=== PATIENT | female | born 1995 | race Caucasian/White ===

== ENCOUNTER 2017-10-31 19:58 | Emergency (ER) | payer OTHER ==
[~2017-10-31] VITALS: Ht 167.6 cm; Wt 62.2 kg
[2017-10-31 20:02] VITALS: Ht 167.6 cm; Wt 62.2 kg
[2017-10-31] MEDS ORDERED: SODIUM CHLORIDE 0.9% 1000ML 1,000 ML IV STA (20:56)
--- NOTE | 2017-10-31 21:20 | EMERGENCY ROOM VISIT NOTE ---
History Report prepared by Layo: Jia Regalado Under the Supervision of: Dr. Giovany Davey M.D. First contact with patient: 20:41 Chief Complaint: ABDOMINAL PAIN Stated Complaint: SEVERE STOMACH PAIN Nursing Triage Summary: Stomach pain all day, concerned that it was due to food eaten earlier in the day. History of Present Illness The patient is a 22 year old female who presents to the Emergency Room with complaints of sharp constant abdominal pain beginning this afternoon. The patient states she ate a bagel this morning and then had [employer] for lunch. She states her pain began after she ate the [employer]. She reports some nausea. She denies any chance of . She denies any gross blood in her urine. Her last menstrual period was three weeks ago. She denies any fever, blood in her stool, black stools, or vomiting. The patient is on control. She denies any recent trauma. Source of History: patient Onset: this afternoon Position: abdomen Quality: sharp Timing: constant Associated Symptoms: + abdominal pain, No fevers, No vomiting, No urinary symptoms Review of Systems See HPI for pertinent positives and negatives. A total of ten systems were reviewed and were otherwise negative. Past Medical & Surgical Medical Problems: (1) No Known Active Medical Problems Family History Patient reports no known family medical history. Social History Smoking Status: Never Smoker Housing Status: lives with roommate Occupation Status: [employer] student Current/Historical Medications Scheduled Ondasetron Odt (Zofran Odt), 4 MG SL Q8 Allergies Coded Allergies: Amoxicillin (Verified Allergy, Intermediate, hives, 10/31/17) Azithromycin (Verified Allergy, Intermediate, hives, 10/31/17) Clavulanic Acid (Verified Allergy, Intermediate, hives, 10/31/17) Physical Exam Vital Signs Date Time Temp Pulse Resp B/P (MAP) Pulse Ox O2 Delivery O2 Flow Rate FiO2 10/31/17 23:41 37.3 88 18 115/55 100 Room Air 10/31/17 22:25 90 18 116/65 100 Room Air 10/31/17 20:02 36.3 92 18 138/87 100 Room Air Physical Exam Physical Exam GENERAL: She is oriented to person, place, and time. She appears well- developed and well-nourished. She does not appear distressed. ____ HENT: Exam performed. Head: Normocephalic and atraumatic. Right Ear: External ear normal. No mastoid tenderness. Left Ear: External ear normal. No mastoid tenderness. Mouth/Throat: The oropharynx is clear and moist. No trismus in the jaw. No dental abscesses or uvula swelling. No oropharyngeal exudate or tonsillar abscesses. ____ EYES: Conjunctivae and EOM are normal. Pupils are equal, round, and reactive to light. Right eye exhibits no discharge. Left eye exhibits no discharge. No scleral icterus. ____ NECK: Normal range of motion. Neck supple. No JVD present. No spinous process tenderness present. No carotid bruit present. No rigidity. No tracheal deviation and normal range of motion present. No Brudzinski's sign and no Kernig 's sign noted. ____ CV: Normal rate, regular rhythm, normal heart sounds and intact distal pulses. There is no peripheral edema. Palpable radial pulses bue. ____ PULM/CHEST: Effort normal and breath sounds normal. No respiratory distress. No stridor. She has no wheezes. She has no rales. Chest Wall: She exhibits no tenderness. ____ ABD: Pain with palpation of LUQ, LLQ, RLQ,. The abdomen is soft. Bowel sounds are normal. She has no distension. No mass is present. There is no tenderness. There is no rebound, no guarding, no Goodman's sign and no tenderness at McBurney 's point. Rovsig negative MUSC/SKEL: Normal range of motion. There is no peripheral edema, tenderness or deformity. LYMPH: No cervical adenopathy. ____ NEURO: She is alert and oriented to person, place, and time. She has normal strength. No cranial nerve deficit or sensory deficit. Coordination and gait normal. GCS eye subscore is 4. GCS verbal subscore is 5. GCS motor subscore is 6. cerbellar tests wnl. ____ SKIN: Skin is warm and dry. She is not diaphoretic. ____ PSYCH: She has a normal mood and affect. Her behavior is normal. Judgment and thought content normal. ____ Medical Decision & Procedures Laboratory Results 10/31/17 21:20 Red Blood Count 4.80, Mean Corpuscular Volume 92.5, Mean Corpuscular Hemoglobin 32.3, Mean Corpuscular Hemoglobin Concent 34.9, Mean Platelet Volume 10.1, Neutrophils (%) (Auto) 83.0, Lymphocytes (%) (Auto) 11.3, Monocytes (%) (Auto) 5.2, Eosinophils (%) (Auto) 0.2, Basophils (%) (Auto) 0.1, Neutrophils # (Auto) 11.57, Lymphocytes # (Auto) 1.58, Monocytes # (Auto) 0.72, Eosinophils # (Auto) 0.03, Basophils # (Auto) 0.02 10/31/17 21:20 Test 10/31/17 21:20 10/31/17 21:23 White Blood Count 13.95 K/uL (4.8-10.8) Red Blood Count 4.80 M/uL (4.2-5.4) Hemoglobin 15.5 g/dL (12.0-16.0) Hematocrit 44.4 % (37-47) Mean Corpuscular Volume 92.5 fL (80-100) Mean Corpuscular Hemoglobin 32.3 pg (25-34) Mean Corpuscular Hemoglobin Concent 34.9 g/dl (32-36) Platelet Count 276 K/uL (130-400) Mean Platelet Volume 10.1 fL (7.4-10.4) Neutrophils (%) (Auto) 83.0 % Lymphocytes (%) (Auto) 11.3 % Monocytes (%) (Auto) 5.2 % Eosinophils (%) (Auto) 0.2 % Basophils (%) (Auto) 0.1 % Neutrophils # (Auto) 11.57 K/uL (1.4-6.5) Lymphocytes # (Auto) 1.58 K/uL (1.2-3.4) Monocytes # (Auto) 0.72 K/uL (0.11-0.59) Eosinophils # (Auto) 0.03 K/uL (0-0.5) Basophils # (Auto) 0.02 K/uL (0-0.2) RDW Standard Deviation 45.3 fL (36.4-46.3) RDW Coefficient of Variation 13.3 % (11.5-14.5) Immature Granulocyte % (Auto) 0.2 % Immature Granulocyte # (Auto) 0.03 K/uL (0.00-0.02) Anion Gap 8.0 mmol/L (3-11) Est Creatinine Clear Calc Drug Dose 102.8 ml/min Estimated GFR () 120.3 Estimated GFR (Non- 103.8 BUN/Creatinine Ratio 22.4 (10-20) Calcium Level 9.0 mg/dl (8.5-10.1) Total Bilirubin 0.8 mg/dl (0.2-1) Aspartate Amino Transf (AST/SGOT) 59 U/L (15-37) Alanine Aminotransferase (ALT/SGPT) 36 U/L (12-78) Alkaline Phosphatase 72 U/L (45-117) Total Protein 7.6 gm/dl (6.4-8.2) Albumin 3.9 gm/dl (3.4-5.0) Globulin 3.7 gm/dl (2.5-4.0) Albumin/Globulin Ratio 1.0 (0.9-2) Lipase 121 U/L (73-393) Urine Color YELLOW Urine Appearance CLEAR (CLEAR) Urine pH 5.0 (4.5-7.5) Urine Specific [place] 1.024 (1.000-1.030) Urine Protein NEG (NEG) Urine Glucose (UA) NEG (NEG) Urine Ketones 1+ (NEG) Urine Occult Blood 1+ (NEG) Urine Nitrite NEG (NEG) Urine Bilirubin NEG (NEG) Urine Urobilinogen NEG (NEG) Urine Leukocyte Esterase NEG (NEG) Urine WBC (Auto) 1-5 /hpf (0-5) Urine RBC (Auto) 0-4 /hpf (0-4) Urine Hyaline Casts (Auto) 1-5 /lpf (0-5) Urine Epithelial Cells (Auto) >30 /lpf (0-5) Urine Bacteria (Auto) NEG (NEG) Urine Test NEG (NEG) Laboratory results reviewed by me Medications Administered Medications (Trade) Dose Ordered Sig/Varinder Route Start Time Stop Time Status Last Admin Dose Admin Sodium Chloride 1,000 ml @ 999 mls/hr Q1H1M STAT IV 10/31/17 20:56 10/31/17 21:56 DC 10/31/17 21:18 999 MLS/HR Morphine Sulfate (MoRPHine SULFATE INJ) 4 mg NOW STAT IV 1/26/18 22:11 10/31/17 22:14 DC 10/31/17 22:19 4 MG Ondansetron HCl (Zofran Inj) 4 mg NOW STAT IV 10/31/17 22:11 10/31/17 22:14 DC 10/31/17 22:18 4 MG ED Course 2050: The patient was evaluated in room B5. A complete history and physical exam was performed. 2055: Ordered Sodium Chloride 1000 ml @ 999 mls/hr IV. 2200: The patient is still appearing uncomfortable. She states she does not feel any better. On repeat abdominal exam, she now shows pain on RLQ with rebound. crying when palpating the RLQ. CT abdomen, analgesia and antiemetic ordered. 2210: Ordered Zofran Inj 4 mg IV. Morphine Sulfate 4 mg IV. 0006: Vital signs stable. CT of the abdomen showed no appendicitis. Ultrasound reading by technologist showed good blood flow to both ovaries. Patient will be discharged in stable condition with follow-up PCP. DISCHARGE - Plan of care discussed with patient and questions answered. The patient was given both verbal and printed discharge instructions. The patient verbalized understanding and ability to comply. The patient is to seek outpatient follow up as noted in the discharge instructions. The patient verbalized understanding and ability to comply. The patient is discharged in stable condition. The patient was instructed to return for worsening symptoms. Medical Decision 0006: Vital signs stable. CT of the abdomen showed no appendicitis. Ultrasound reading by technologist showed good blood flow to both ovaries. Patient will be discharged in stable condition with follow-up PCP. DISCHARGE - Plan of care discussed with patient and questions answered. The patient was given both verbal and printed discharge instructions. The patient verbalized understanding and ability to comply. The patient is to seek outpatient follow up as noted in the discharge instructions. The patient verbalized understanding and ability to comply. The patient is discharged in stable condition. The patient was instructed to return for worsening symptoms. Medication Reconcilliation Current Medication List: was personally reviewed by me Impression Primary Impression: Abdominal pain Additional Impression: Nausea and vomiting Scribe Attestation The scribe's documentation has been prepared under my direction and personally reviewed by me in its entirety. I confirm that the note above accurately reflects all work, treatment, procedures, and medical decision making performed by me. The chart was completed utilizing [employer] voice recognition software. Grammatical errors, random word insertions, pronoun errors, and incomplete sentences are an occasional consequence of this system due to software limitations, ambient noise, and hardware issues. Any formal questions or concerns about the content, text, or information contained within the body of this dictation should be directly addressed to the physician for clarification. Departure Information Prescriptions Ondasetron Odt (ZOFRAN ODT) 4 Mg Tab 4 MG SL Q8 for Nausea, #30 TAB Prov: Giovany Davey M.D. 11/01/17 Referrals No Doctor, Assigned (PCP) Patient Instructions My [facility] Problem Qualifiers Primary Impression: Abdominal pain Abdominal location: right lower quadrant Qualified Codes: R10.31 - Right lower quadrant pain Additional Impression: Nausea and vomiting Vomiting type: unspecified Vomiting Intractability: unspecified Qualified Codes: R11.2 - Nausea with vomiting, unspecified
[2017-10-31 21:49] LABS: BASO % 0.1 %; BASO ABS # 0.02 K/uL (0-0.2); EOS % 0.2 %; EOS ABS # 0.03 K/uL (0-0.5); HEMATOCRIT 44.4 % (37-47); HEMOGLOBIN 15.5 g/dL (12.0-16.0); IG# 0.03 K/uL (0.00-0.02); LYMPH % 11.3 %; LYMPH ABS # 1.58 K/uL (1.2-3.4); MEAN CELL VOLUME 92.5 fL (80-100); MEAN CORPUSCULAR HEMOGLOBIN 32.3 pg (25-34); MEAN CORPUSCULAR HGB CONC 34.9 g/dl (32-36); MEAN PLATELET VOLUME 10.1 fL (7.4-10.4); MONO % 5.2 %; MONO ABS # 0.72 K/uL (0.11-0.59); NEUT ABS # 11.57 K/uL (1.4-6.5); PLATELET COUNT 276 K/uL (130-400); RED CELL DISTRIBUTION WIDTH CV 13.3 % (11.5-14.5); RED CELL DISTRIBUTION WIDTH SD 45.3 fL (36.4-46.3); WHITE BLOOD COUNT 13.95 K/uL (4.8-10.8)
[2017-10-31] MEDS ORDERED: MoRPHine SULFATE 4 MG/ML 1 ML CARP\\VIAL IV STA (22:11)
[2017-10-31] MEDS ORDERED: ONDANSETRON INJ 2 MG/ML 2 ML VIAL IV STA (22:11)
[2017-10-31 22:14] LABS: ALBUMIN 3.9 gm/dl (3.4-5.0); CREATININE 0.81 mg/dl (0.60-1.20); POTASSIUM 3.5 mmol/L (3.5-5.1)
[2017-10-31 22:17] LABS: TOTAL PROTEIN 7.6 gm/dl (6.4-8.2)
[2017-10-31] MEDS ORDERED: OPTIRAY 320 IV PRN (22:45)
--- NOTE | 2017-10-31 23:02 | DIAGNOSTIC IMAGING REPORT ---
ABDOMEN AND PELVIS CT WITH IV CONTRAST CT DOSE: 299.72 mGy.cm HISTORY: Right lower quadrant abdominal pain. TECHNIQUE: Multiaxial CT images of the abdomen and pelvis were performed following the use of intravenous contrast. A dose lowering technique was utilized adhering to the principles of ALARA. COMPARISON STUDY: None. FINDINGS: The lung bases are clear. No pneumoperitoneum. No pneumatosis. No fractures within the visualized osseous structures. The liver, gallbladder, pancreas, spleen, adrenal glands, and kidneys are unremarkable. No retroperitoneal lymphadenopathy. The bladder uterus, and bilateral adnexa are unremarkable. Trace pelvic free fluid. Fluid-filled loops of large and small bowel. No dilated loops of bowel to suggest an obstruction. No bowel wall thickening. Normal appendix. IMPRESSION: 1. Normal appendix. 2. Fluid-filled loops of nondilated large and small bowel. This can be seen the setting of a gastroenteritis. Electronically signed by: Stephan Aranda M.D. 10/31/2017 11:00 PM Dictated Date/Time: 10/31/2017 10:54 PM
[2017-10-31 23:41] VITALS: BP 115/55; PULSE 88; TEMP 37.3; O2SAT 100
[2017-11-01] MEDS ORDERED: ONDA4TAB10 SL (00:11)
--- NOTE | 2017-11-03 10:13 | DIAGNOSTIC IMAGING REPORT ---
ULTRASOUND OF THE PELVIS CLINICAL HISTORY: Right pelvic pain.. COMPARISON STUDY: Pelvic CT dated 10/31/2017. TECHNIQUE: Real-time, grayscale, and color flow sonography of the pelvis is performed both transabdominally and endovaginally. Images are reviewed in the transverse and longitudinal planes. The examination was presented for interpretation on 11/03/2017. FINDINGS: Uterus: The uterus is normal in size and echotexture, measuring 6.6 x 3.9 x 4.3 cm. Trace fluid is noted in the endocervical canal. Endometrium: The endometrium is normal in appearance, and the endometrial stripe is normal in thickness measuring up to 0.3 cm. Ovaries: The ovaries are normal in size and morphology. The right ovary measures 3.0 x 1.8 x 2.2 cm and the left ovary measures 2.4 x 1.4 x 2.4 cm. Small follicles are incidentally noted. Normal Doppler waveforms are shown within both ovaries. Pelvis: There is trace free fluid in the cul-de-sac. No concerning adnexal lesion is seen. IMPRESSION: 1. No acute sonographic abnormality is seen in the pelvis. 2. There is trace free fluid in the cul-de-sac, likely within physiologic limits. Electronically signed by: Evelio Gallego M.D. 11/03/2017 10:11 AM Dictated Date/Time: 11/03/2017 10:00 AM
== END 2017-11-01 00:18 | disposition home or self-care (01) ==
LOC: C.EDB 19:59
DX: R10.31 Right lower quadrant pain (principal); R11.2 Nausea with vomiting, unspecified; Z79.3 Long term (current) use of hormonal contraceptives